=== PATIENT | male | born 1950 | race Caucasian/White ===

== ENCOUNTER 2022-06-04 13:30 | Emergency (ER) | payer OTHER ==
[~2022-06-04] VITALS: Ht 172.7 cm; Wt 81.7 kg
[2022-06-04] MEDS ORDERED: MYCO250 PO (14:44)
[2022-06-04] MEDS ORDERED: WARF5 PO (14:44)
[2022-06-04] MEDS ORDERED: SERT25 PO (14:45)
[2022-06-04] MEDS ORDERED: OXCA150 PO (14:45)
[2022-06-04] MEDS ORDERED: Cialis2.5 MG PO (15:58)
[2022-06-04] MEDS ORDERED: ATOR80 PO (15:59)
[2022-06-04] MEDS ORDERED: AMLO10 PO (15:59)
[2022-06-04] MEDS ORDERED: TAMS.4ER PO (15:59)
[2022-06-04] MEDS ORDERED: FINA5 PO (15:59)
== END 2022-06-04 14:10 | disposition home or self-care (01) ==
LOC: ER 13:30
DX: R45.1 Restlessness and agitation (principal); F41.9 Anxiety disorder, unspecified; Z79.01 Long term (current) use of anticoagulants; Z79.899 Other long term (current) drug therapy
CPT/HCPCS: A9270; J7517